=== PATIENT | male | born 1980 | race Hispanic/Latino ===

== ENCOUNTER 2017-08-07 19:37 | Emergency (ER) | payer BC ==
[~2017-08-07] VITALS: Ht 193 cm; Wt 124.0 kg
[2017-08-08 01:00] VITALS: BP 129/74
[2017-08-08] MEDS ORDERED: NORCO 5/3251 TABLET PO (01:00)
== END 2017-08-08 01:00 | disposition home or self-care (01) ==
LOC: EME 19:37
PROC: 3E0T3BZ Introduction of Anesthetic Agent into Peripheral Nerves and Plexi, Percutaneous Approach (ICD-10-PCS; principal; 2017-08-07)
DX: S60.00XA Contusion of unspecified finger without damage to nail, initial encounter (principal); S61.219A Laceration without foreign body of unspecified finger without damage to nail, initial encounter; W23.0XXA Caught, crushed, jammed, or pinched between moving objects, initial encounter; F17.200 Nicotine dependence, unspecified, uncomplicated
CPT/HCPCS: 73130; 99281; 99284